=== PATIENT | male | born 1965 | race Caucasian/White ===

== ENCOUNTER 2017-06-04 09:43 | Emergency (ER) | payer BC ==
[~2017-06-04] VITALS: Ht 177.8 cm; Wt 85.0 kg
[2017-06-04 09:46] VITALS: BP 130/85; PULSE 90; RESP 24; TEMP 97.4; O2SAT 98
--- NOTE | 2017-06-04 10:15 | PD ---
HPI Chief Complaint: GI Complaint Time Seen by Provider: 09:58 Travel History International Travel<30 days: Yes Contact w/Intl Traveler<30days: [place] Traveled to: [place] Traveled to known affect area: No History of Present Illness HPI Patient is a 51-year-old male who presents to emergency room with his friend for evaluation of nausea and vomiting. Patient reports that he has been nauseous and has been vomiting since yesterday afternoon. Patient denies any abdominal pain, denies any diarrhea or constipation. Denies any sick contacts. Denies fever/chills. Denies chest pain/sob. Reports that he felt a little dizzy earlier today, denies dizziness at this time. 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 [facility] Past Medical History Medical History: Denies Significant Hx Past Surgical History Surgical History: No Previous Surgery Social History Alcohol Use: No Tobacco Use: No Substance Use: No Allergies-Medications (Allergen,Severity, Reaction): Coded Allergies: No Known Allergies (Unverified , 06/04/17) Reported Meds & Prescriptions Reported Meds & Active Scripts Active No Active Prescriptions or Reported Medications Review of Systems General / Constitutional: No: Fever, Chills Eyes: No: Visual changes HENT: No: Headaches Cardiovascular: No: Chest Pain or Discomfort Respiratory: No: Shortness of Breath Gastrointestinal: Positive: Nausea, Vomiting, No: Diarrhea, Abdominal Pain Genitourinary: No: Urgency, Frequency, Dysuria Musculoskeletal: No: Pain Skin: No Rash Neurologic: No: Weakness, Dizziness, Headache Psychiatric: No: Depression Endocrine: No: Polydipsia Hematologic/Lymphatic: No: Easy Bruising Physical Exam Narrative GENERAL: NAD, Nontoxic SKIN: Focused skin assessment warm/dry. HEAD: Atraumatic. Normocephalic. EYES: Pupils equal and round. No scleral icterus. No injection or drainage. ENT: No nasal bleeding or discharge. Mucous membranes pink and moist. NECK: Trachea midline. No JVD. CARDIOVASCULAR: Regular rate and rhythm. No murmur appreciated. RESPIRATORY: No accessory muscle use. Clear to auscultation. Breath sounds equal bilaterally. GASTROINTESTINAL: Abdomen soft, non-tender, nondistended. Hepatic and splenic margins not palpable. MUSCULOSKELETAL: No obvious deformities. No clubbing. No cyanosis. No edema. NEUROLOGICAL: Awake and alert. Motor grossly within normal limits. Normal speech. PSYCHIATRIC: Appropriate mood and affect Data Data Last Documented VS Vital Signs Date Time Temp Pulse Resp B/P Pulse Ox O2 Delivery O2 Flow Rate FiO2 06/04/17 10:21 18 06/04/17 10:21 90 128/91 99 Room Air 06/04/17 09:46 97.4 Orders Complete Blood Count With Diff (06/04/17 10:05) Comprehensive Metabolic Panel (06/04/17 10:05) Lipase (06/04/17 10:05) Prothrombin Time / Inr (Pt) (06/04/17 10:05) Act Partial Throm Time (Ptt) (06/04/17 10:05) Urinalysis - C+S If Indicated (06/04/17 10:05) Iv Access Insert/Monitor (06/04/17 10:05) Ecg Monitoring (06/04/17 10:05) Oximetry (06/04/17 10:05) Creatine Kinase (Cpk) (06/04/17 10:12) Ondansetron Inj (Zofran Inj) (06/04/17 10:45) Sodium Chlor 0.9% 1000 Ml Inj (Ns 1000 M (06/04/17 10:45) Sodium Chloride 0.9% Flush (Ns Flush) (06/04/17 10:45) Famotidine Inj (Pepcid Inj) (06/04/17 10:45) Sodium Chlor 0.9% 1000 Ml Inj (Ns 1000 M (06/04/17 11:30) Sodium Chlor 0.9% 1000 Ml Inj (Ns 1000 M (06/04/17 12:00) Labs Laboratory Tests Test 06/04/17 06/04/17 10:10 11:25 White Blood Count 12.8 TH/MM3 Red Blood Count 5.85 MIL/MM3 Hemoglobin 16.0 GM/DL Hematocrit 48.5 % Mean Corpuscular Volume 82.8 FL Mean Corpuscular Hemoglobin 27.3 PG Mean Corpuscular Hemoglobin 32.9 % Concent Red Cell Distribution Width 15.6 % Platelet Count 426 TH/MM3 Mean Platelet Volume 8.1 FL Neutrophils (%) (Auto) 75.1 % Lymphocytes (%) (Auto) 15.6 % Monocytes (%) (Auto) 6.8 % Eosinophils (%) (Auto) 2.0 % Basophils (%) (Auto) 0.5 % Neutrophils # (Auto) 9.7 TH/MM3 Lymphocytes # (Auto) 2.0 TH/MM3 Monocytes # (Auto) 0.9 TH/MM3 Eosinophils # (Auto) 0.3 TH/MM3 Basophils # (Auto) 0.1 TH/MM3 CBC Comment DIFF FINAL Differential Comment Prothrombin Time 10.8 SEC Prothromb Time International 1.0 RATIO Ratio Activated Partial 27.2 SEC Thromboplast Time Sodium Level 134 MEQ/L Potassium Level 4.2 MEQ/L Chloride Level 101 MEQ/L Carbon Dioxide Level 23.0 MEQ/L Anion Gap 10 MEQ/L Blood Urea Nitrogen 28 MG/DL Creatinine 1.84 MG/DL Estimat Glomerular Filtration 39 ML/MIN Rate Random Glucose 99 MG/DL Calcium Level 9.3 MG/DL Total Bilirubin 0.6 MG/DL Aspartate Amino Transf 35 U/L (AST/SGOT) Alanine Aminotransferase 38 U/L (ALT/SGPT) Alkaline Phosphatase 98 U/L Total Protein 8.6 GM/DL Albumin 4.3 GM/DL Lipase 192 U/L Urine Color YELLOW Urine Turbidity HAZY Urine pH 5.5 Urine Specific [place] 1.029 Urine Protein 30 mg/dL Urine Glucose (UA) NEG mg/dL Urine Ketones NEG mg/dL Urine Occult Blood NEG Urine Nitrite NEG Urine Bilirubin NEG Urine Urobilinogen LESS THAN 2.0 MG/DL Urine Leukocyte Esterase NEG Urine RBC 1 /hpf Urine WBC 6 /hpf Urine Squamous Epithelial 1 /hpf Cells Urine Transitional Epithelial 1 /hpf Cells Urine Amorphous Sediment RARE Urine Bacteria RARE /hpf Urine Hyaline Casts 24 /lpf Urine Mucus FEW /lpf Microscopic Urinalysis Comment CULT NOT INDICATED MDM Medical Decision Making Medical Screen Exam Complete: Yes Emergency Medical Condition: Yes Interpretation(s) Vital Signs Date Time Temp Pulse Resp B/P Pulse Ox O2 Delivery O2 Flow Rate FiO2 06/04/17 09:46 97.4 90 24 130/85 98 Room Air Differential Diagnosis Differential includes gastritis, gastroenteritis, electrolyte abnormality, dehydration, rhabdomyolysis, viral syndrome Narrative Course Patient is a 51 year old male who presents to ER with c/o of nausea and vomiting. Symptoms began yesterday and has been continuous. He endorses that he did vomit twice today. No sick contacts. No fever/chills. No abdominal pain. No chest pain/sob. 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 On physical exam, patient appears nontoxic. Abdomen is soft , nt/nd, no peritoneal signs. Plan to obtain basic labs and administer IVF and zofran for nausea. Will monitor patient Vital Signs Date Time Temp Pulse Resp B/P Pulse Ox O2 Delivery O2 Flow Rate FiO2 06/04/17 10:21 18 06/04/17 10:21 90 16 128/91 99 Room Air 06/04/17 09:46 97.4 90 24 130/85 98 Room Air Laboratory Tests Test 06/04/17 06/04/17 10:10 11:25 White Blood Count 12.8 TH/MM3 (4.0-11.0) Red Blood Count 5.85 MIL/MM3 (4.50-5.90) Hemoglobin 16.0 GM/DL (13.0-17.0) Hematocrit 48.5 % (39.0-51.0) Mean Corpuscular Volume 82.8 FL (80.0-100.0) Mean Corpuscular Hemoglobin 27.3 PG (27.0-34.0) Mean Corpuscular Hemoglobin 32.9 % Concent (32.0-36.0) Red Cell Distribution Width 15.6 % (11.6-17.2) Platelet Count 426 TH/MM3 (150-450) Mean Platelet Volume 8.1 FL (7.0-11.0) Neutrophils (%) (Auto) 75.1 % (16.0-70.0) Lymphocytes (%) (Auto) 15.6 % (9.0-44.0) Monocytes (%) (Auto) 6.8 % (0.0-8.0) Eosinophils (%) (Auto) 2.0 % (0.0-4.0) Basophils (%) (Auto) 0.5 % (0.0-2.0) Neutrophils # (Auto) 9.7 TH/MM3 (1.8-7.7) Lymphocytes # (Auto) 2.0 TH/MM3 (1.0-4.8) Monocytes # (Auto) 0.9 TH/MM3 (0-0.9) Eosinophils # (Auto) 0.3 TH/MM3 (0-0.4) Basophils # (Auto) 0.1 TH/MM3 (0-0.2) CBC Comment DIFF FINAL Differential Comment Prothrombin Time 10.8 SEC (9.8-11.6) Prothromb Time International 1.0 RATIO Ratio Activated Partial 27.2 SEC Thromboplast Time (24.3-30.1) Sodium Level 134 MEQ/L (136-145) Potassium Level 4.2 MEQ/L (3.5-5.1) Chloride Level 101 MEQ/L (98-107) Carbon Dioxide Level 23.0 MEQ/L (21.0-32.0) Anion Gap 10 MEQ/L (5-15) Blood Urea Nitrogen 28 MG/DL (7-18) Creatinine 1.84 MG/DL (0.60-1.30) Estimat Glomerular Filtration 39 ML/MIN (>89) Rate Random Glucose 99 MG/DL (74-106) Calcium Level 9.3 MG/DL (8.5-10.1) Total Bilirubin 0.6 MG/DL (0.2-1.0) Aspartate Amino Transf 35 U/L (15-37) (AST/SGOT) Alanine Aminotransferase 38 U/L (12-78) (ALT/SGPT) Alkaline Phosphatase 98 U/L (45-117) Total Protein 8.6 GM/DL (6.4-8.2) Albumin 4.3 GM/DL (3.4-5.0) Lipase 192 U/L (73-393) Urine Color YELLOW (YELLW/STRAW) Urine Turbidity HAZY (CLEAR) Urine pH 5.5 (5.0-8.5) Urine Specific [place] 1.029 (1.002-1.035) Urine Protein 30 mg/dL (NEG-TRACE) Urine Glucose (UA) NEG mg/dL (NEG) Urine Ketones NEG mg/dL (NEG) Urine Occult Blood NEG (NEG) Urine Nitrite NEG (NEG) Urine Bilirubin NEG (NEG) Urine Urobilinogen LESS THAN 2.0 MG/DL (LESS THAN 2.0) Urine Leukocyte Esterase NEG (NEG) Urine RBC 1 /hpf (0-3) Urine WBC 6 /hpf (0-5) Urine Squamous Epithelial 1 /hpf (0-5) Cells Urine Transitional Epithelial 1 /hpf (NONE) Cells Urine Amorphous Sediment RARE Urine Bacteria RARE /hpf (NONE) Urine Hyaline Casts 24 /lpf (RARE) Urine Mucus FEW /lpf (OCC) Microscopic Urinalysis Comment CULT NOT INDICATED Vital Signs Date Time Temp Pulse Resp B/P Pulse Ox O2 Delivery O2 Flow Rate FiO2 06/04/17 10:21 18 06/04/17 10:21 90 16 128/91 99 Room Air 06/04/17 09:46 97.4 90 24 130/85 98 Room Air Patient re-evaluated, patient feeling much better at this time. Abdomen is soft , nontender, nondistended, no peritoneal signs. I reviewed all labs and all studies with patient in detail. I encouraged patient to drink more fluids, he will return to emergency room as needed. Diagnosis Primary Impression: Nausea & vomiting Qualified Code: R11.2 - Non-intractable vomiting with nausea, unspecified vomiting type Additional Impressions: Dehydration Renal failure Qualified Code: N19 - Renal failure, unspecified chronicity Patient Instructions: General Instructions Additional Instructions: Please drink plenty of fluids Return to ER as needed Return to ER if symptoms worsen or persist Please follow up with your primary care doctor Med/Other Pt SpecificInfo: Prescription(s) given Scripts Ondansetron Odt (Zofran Odt)4 Mg Tab4 Mg SL Q6HR PRN (Nausea/Vomiting) #30 TAB Ref 0 Prov:Leah Roberts DO 06/04/17 Disposition: 01 DISCHARGE HOME Condition: Stable Leah Roberts DO Jun 04, 2017 10:15
[2017-06-04 10:21] VITALS: BP 128/91; PULSE 90; RESP 16; O2SAT 99
[2017-06-04 10:33] LABS: AUTOMATED NEUTROPHIL # 9.7 TH/MM3 (1.8-7.7); BASOPHIL # 0.1 TH/MM3 (0-0.2); BASOPHIL % 0.5 % (0.0-2.0); EOSINOPHIL # 0.3 TH/MM3 (0-0.4); HEMATOCRIT 48.5 % (39.0-51.0); HEMO FLAGS DIFF FINAL; LYMPH % 15.6 % (9.0-44.0); MEAN CELL VOLUME 82.8 FL (80.0-100.0); MEAN CORPUSCULAR HEMOGLOBIN 27.3 PG (27.0-34.0); MEAN CORPUSCULAR HGB CONC 32.9 % (32.0-36.0); MONO % 6.8 % (0.0-8.0); NEUT % 75.1 % (16.0-70.0); PLATELET COUNT 426 TH/MM3 (150-450); RED BLOOD COUNT 5.85 MIL/MM3 (4.50-5.90); RED CELL DISTRIBUTION WIDTH 15.6 % (11.6-17.2); WHITE BLOOD COUNT 12.8 TH/MM3 (4.0-11.0)
[2017-06-04 10:41] LABS: APTT (PATIENT) 27.2 SEC (24.3-30.1); PROTHROMBIN TIME - PATIENT 10.8 SEC (9.8-11.6)
[2017-06-04 10:45] LABS: ALT (GPT) 38 U/L (12-78)
[2017-06-04] MEDS ORDERED: SODIUM CHLORIDE 0.9% FLUSH 10 ML FLUSH IV FLUSH PRN (10:45)
[2017-06-04] MEDS ORDERED: FAMOTIDINE 20 MG/2 ML VIAL IV PUSH ONE (10:45)
[2017-06-04] MEDS ORDERED: SODIUM CHLOR 0.9% 1000 ML INJ 1,000 ML IV SCH (10:45)
[2017-06-04] MEDS ORDERED: ONDANSETRON HCL 4 MG/2 ML VIAL IVP ONE (10:45)
[2017-06-04 10:48] LABS: ALKALINE PHOSPHATASE 98 U/L (45-117); TOTAL BILIRUBIN ADULT 0.6 MG/DL (0.2-1.0)
[2017-06-04 10:54] LABS: ANION GAP 10 MEQ/L (5-15); AST (GOT) 35 U/L (15-37); BLOOD UREA NITROGEN 28 MG/DL (7-18); CHLORIDE 101 MEQ/L (98-107); GLOMERULAR FILTRATION RATE 39 ML/MIN (>89); POTASSIUM 4.2 MEQ/L (3.5-5.1); SODIUM (NA) 134 MEQ/L (136-145)
[2017-06-04 11:15] VITALS: BP 124/77; PULSE 78; RESP 18; O2SAT 98
[2017-06-04] MEDS ORDERED: SODIUM CHLOR 0.9% 1000 ML INJ 1,000 ML IV ONE ×2 (11:30→12:00)
[2017-06-04 11:56] LABS: BACTERIA, URINE RARE /hpf; BLOOD, URINE NEG (NEG); COMMENT (UR) CULT NOT INDICATED; CULTURE IF INDICATED CULT NOT INDICATED; GLUCOSE,URINE NEG (NEG); HYALINE CAST, URINE 24 /lpf (RARE); KETONE, URINE NEG (NEG); MUCUS URINE FEW /lpf (OCC); NITRITE,URINE NEG (NEG); PH, URINE 5.5 (5.0-8.5); SQUAMOUS EPITHELIAL CELL URINE 1 /hpf (0-5); TRANSITIONAL EPI CELLS, URINE 1 /hpf; URINE COLOR YELLOW (YELLW/STRAW)
[2017-06-04] MEDS ORDERED: ZOFR4TAB3 SL (12:42)
[2017-06-04 13:11] VITALS: BP 121/72
[2017-06-05 01:20] LABS: CKMB 2.5 NG/ML (0.5-3.6)
== END 2017-06-04 13:13 | disposition home or self-care (01) ==
LOC: NEPD 09:43
DX: R11.2 Nausea with vomiting, unspecified (principal); E86.0 Dehydration; N19 Unspecified kidney failure
CPT/HCPCS: 80053; 81001; 82550; 82552; 83690; 85025; 85610; 85730; 96361; 96374; 96375; 99284; J2405; J7030